=== PATIENT | female | born 1975 | race Caucasian/White ===

== ENCOUNTER 2017-03-01 16:56 | Emergency (ER) | payer OTHER ==
--- NOTE | 2017-03-01 17:25 | EDPHY ---
H & P Stated Complaint: Period longer than nl;spotting now;wants to get checked before travel Time Seen by Provider: 03/01/17 17:24 HPI/ROS: CHIEF COMPLAINT: Dysmenorrhea HISTORY OF PRESENT ILLNESS: The patient presents to the ED with a 2 week history of dysmenorrhea. The patient reports she has been having sporadic irregular periods for the past several months. The patient denies any possibility of current . Patient does have a history of psoriasis and recently has had a flare of that chronic illness. She has been on steroids for that condition. The patient denies any complaints of abdominal pain, dysuria, fevers, chills or weight loss. She has no additional acute complaints. REVIEW OF SYSTEMS: A comprehensive 10 point review of systems is otherwise negative aside from elements mentioned in the history of present illness. Source: Patient Exam Limitations: No limitations - Personal History LMP (Females 10-55): Now Current Tetanus Diphtheria and Acellular Pertussis (TDAP): Yes - Medical/Surgical History Other PMH: psoriasis - Social History Smoking Status: Never smoked - Physical Exam Exam: General Appearance: Alert, no distress Eyes: Pupils equal and round no pallor or injection ENT, Mouth: Mucous membranes moist Respiratory: There are no retractions, lungs are clear to auscultation Cardiovascular: Regular rate and rhythm Gastrointestinal: Abdomen is soft and nontender, no masses, bowel sounds normal Neurological: A&O, normal motor function, normal sensory exam, normal cranial nerves Skin: Warm and dry, no rashes Musculoskeletal: Neck is supple nontender Extremities: symmetrical, full range of motion Constitutional: Initial Vital Signs Temperature (C) 36.7 C 03/01/17 17:00 Heart Rate 66 03/01/17 17:00 Respiratory Rate 16 03/01/17 17:00 Blood Pressure 127/80 H 03/01/17 17:00 O2 Sat (%) 98 03/01/17 17:00 O2 Delivery Mode Room Air Allergies/Adverse Reactions: emycin Allergy (Intermediate, Uncoded 03/01/17 16:58) Hives Home Medications: Medication Instructions Recorded NK [No Known Home Meds] 03/01/17 Medical Decision Making - Diagnostics Imaging Results: Pelvic ultrasound: Left ovarian cyst, no obvious uterine fibroid. Images reported to me on-call radiologist. ED Course/Re-evaluation: The patient presents to the ED with complaints of dysfunctional uterine bleeding. The patient is noted to be hemodynamically stable with no active bleeding in the ED currently. The patient has normal coagulation studies and no evidence of any acute abdominal pain. The patient will be instructed to follow up with our on-call population geneticist Dr. Lisandra Clay for further evaluation of her dysfunctional uterine bleeding. The patient does understand return to the emergency department for severe abdominal pain, lightheadedness, markedly worsening bleeding or other concerns. The patient did have a pelvic ultrasound which demonstrates no obvious uterine fibroid. The patient does have an incidentally noted left ovarian cyst with a trace amount of free fluid. Differential Diagnosis: Differential diagnosis considered includes critical anemia, dysfunctional uterine bleeding, uterine fibroid - Data Points Laboratory Results: Laboratory Results 03/01/17 17:32 03/01/17 17:32 03/01/17 03/01/17 03/01/17 17:32 17:32 17:32 WBC RBC Hgb Hct MCV MCH MCHC RDW Plt Count MPV Neut % (Auto) Lymph % (Auto) [place] % (Auto) Eos % (Auto) Baso % (Auto) Nucleat RBC Rel Count Absolute Neuts (auto) Absolute Lymphs (auto) Absolute Monos (auto) Absolute Eos (auto) Absolute Basos (auto) Absolute Nucleated RBC Immature Gran % Immature Gran # PT 12.7 SEC SEC (12.0-15.0) INR 0.96 (0.83-1.16) APTT 32.3 SEC SEC (23.0-38.0) Sodium 141 mEq/L mEq/L (134-144) Potassium 3.7 mEq/L mEq/L (3.5-5.2) Chloride 100 mEq/L mEq/L (97-110) Carbon Dioxide 26 mEq/l mEq/l (22-31) Anion Gap 15 mEq/L mEq/L (8-16) BUN 12 mg/dL mg/dL (7-23) Creatinine 0.6 mg/dL mg/dL (0.6-1.0) Estimated GFR > 60 Glucose 101 mg/dL H mg/dL (70-100) Calcium 9.8 mg/dL mg/dL (8.5-10.4) Beta HCG, Qual NEGATIVE 03/01/17 17:32 WBC 3.92 10^3/uL 10^3/uL (3.80-9.50) RBC 4.60 10^6/uL 10^6/uL (4.18-5.33) Hgb 15.0 g/dL g/dL (12.6-16.3) Hct 43.8 % % (38.0-47.0) MCV 95.2 fL fL (81.5-99.8) MCH 32.6 pg pg (27.9-34.1) MCHC 34.2 g/dL g/dL (32.4-36.7) RDW 11.4 % L % (11.5-15.2) Plt Count 205 10^3/uL 10^3/uL (150-400) MPV 9.2 fL fL (8.7-11.7) Neut % (Auto) 59.8 % % (39.3-74.2) Lymph % (Auto) 34.2 % % (15.0-45.0) [place] % (Auto) 5.4 % % (4.5-13.0) Eos % (Auto) 0.3 % L % (0.6-7.6) Baso % (Auto) 0.3 % % (0.3-1.7) Nucleat RBC Rel Count 0.0 % % (0.0-0.2) Absolute Neuts (auto) 2.35 10^3/uL 10^3/uL (1.70-6.50) Absolute Lymphs (auto) 1.34 10^3/uL 10^3/uL (1.00-3.00) Absolute Monos (auto) 0.21 10^3/uL L 10^3/uL (0.30-0.80) Absolute Eos (auto) 0.01 10^3/uL L 10^3/uL (0.03-0.40) Absolute Basos (auto) 0.01 10^3/uL L 10^3/uL (0.02-0.10) Absolute Nucleated RBC 0.00 10^3/uL 10^3/uL (0-0.01) Immature Gran % 0.0 % % (0.0-1.1) Immature Gran # 0.00 10^3/uL 10^3/uL (0.00-0.10) PT INR APTT Sodium Potassium Chloride Carbon Dioxide Anion Gap BUN Creatinine Estimated GFR Glucose Calcium Beta HCG, Qual Departure - Departure Disposition: Home, Routine, Self-Care Clinical Impression: Dysfunctional uterine bleeding Condition: Good Instructions: Dysfunctional Uterine Bleeding (ED) Additional Instructions: 1. Please return to the ED for severe pain, heavy bleeding or other concerns. 2. Please follow up with the population geneticist you have been referred to for follow- up visit within the next several days for further evaluation of your abnormal menstrual cycle. Referrals: Lisandra Clay MD [Medical Doctor] - As per Instructions
[2017-03-01 17:48] LABS: ADD DIFF? NO; ADD MORPH? NO; ADD SCAN? NO; ATYPICAL LYMPHOCYTE FLAG 10 (0-99); FRAGMENT RBC FLAG 0 (0-99); HEMATOCRIT 43.8 % (38.0-47.0); LEFT SHIFT FLG 0 (0-99); LIPEMIA HEMOLYSIS FLAG 90 (0-99); MEAN CELL HEMOGLOBIN 32.6 pg (27.9-34.1); MEAN CELL HEMOGLOBIN CONCENTR. 34.2 g/dL (32.4-36.7); MEAN CELL VOLUME 95.2 fL (81.5-99.8); MEAN PLATELET VOLUME 9.2 fL (8.7-11.7); PLATELET CLUMPS FLAG 0 (0-99); PLATELET COUNT 205 10^3/uL (150-400); RED CELL DISTRIBUTION WIDTH 11.4 % (11.5-15.2)
[2017-03-01 17:58] LABS: ANION GAP 15 mEq/L (8-16); CALCIUM 9.8 mg/dL (8.5-10.4); CARBON DIOXIDE 26 mEq/l (22-31); CHLORIDE 100 mEq/L (97-110); CREATININE 0.6 mg/dL (0.6-1.0); GLOMERULAR FILTRATION RATE > 60; GLUCOSE 101 mg/dL (70-100); POTASSIUM 3.7 mEq/L (3.5-5.2); SODIUM 141 mEq/L (134-144)
[2017-03-01 18:01] LABS: INR 0.96 (0.83-1.16); PROTIME(PATIENT) 12.7 SEC (12.0-15.0)
[2017-03-01 18:02] LABS: APTT 32.3 SEC (23.0-38.0)
[2017-03-01 19:18] VITALS: O2SAT 97
[2017-03-01 19:54] VITALS: BP 115/80; PULSE 59; RESP 16; TEMP 98.2
== END 2017-03-01 19:54 | disposition home or self-care (01) ==
DX: N93.8 Other specified abnormal uterine and vaginal bleeding (principal); R79.1 Abnormal coagulation profile